=== PATIENT | female | born 1970 | race Caucasian/White ===

== ENCOUNTER 2019-01-18 15:02 | Emergency (ER) | payer SELFPAY ==
[~2019-01-18] VITALS: Ht 162.6 cm; Wt 68.0 kg
[2019-01-18 15:38] VITALS: BP 111/69
== END 2019-01-19 03:21 | disposition left against medical advice (07) ==
LOC: ER 17:06
DX: T38.3X1A Poisoning by insulin and oral hypoglycemic [antidiabetic] drugs, accidental (unintentional), initial encounter (principal); R42 Dizziness and giddiness; E11.649 Type 2 diabetes mellitus with hypoglycemia without coma; Y92.89 Other specified places as the place of occurrence of the external cause
CPT/HCPCS: 82962; 99283